=== PATIENT | female | born 2000 | race Caucasian/White ===

== ENCOUNTER 2020-10-29 15:50 | Emergency (ER) | payer OTHER ==
[~2020-10-29] VITALS: Ht 165.1 cm; Wt 65.5 kg
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
[2020-10-29] MEDS ORDERED: KETOROLAC 60 MG/2 ML ONE (16:18)
[2020-10-29] MEDS ORDERED: KETOROLAC 30 MG/1 ML IM ONE (16:30)
--- NOTE | 2020-10-29 16:54 | NUR ---
PT CHART REVIEWED AND PLACED FOR RECHECK.
[2020-10-29 17:17] VITALS: BP 112/79
== END 2020-10-29 17:51 | disposition home or self-care (01) ==
LOC: ED 16:42
DX: G89.11 Acute pain due to trauma (principal); M25.512 Pain in left shoulder; R00.0 Tachycardia, unspecified; X58.XXXA Exposure to other specified factors, initial encounter; Y93.89 Activity, other specified; Y92.828 Other wilderness area as the place of occurrence of the external cause; Y99.8 Other external cause status
CPT/HCPCS: 73030; 96372; 99283; J1885